=== PATIENT | female | born 1965 | race Caucasian/White ===

== ENCOUNTER 2021-01-04 08:10 | Day surgery (SDC) | payer OTHER, SELFPAY ==
[~2021-01-04] VITALS: Ht 152.4 cm; Wt 54.4 kg
[2021-01-04] MEDS ORDERED: fentaNYL citrate 0.05 MG/ML VIAL ONE (10:25)
[2021-01-04] MEDS ORDERED: MIDAZOLAM 5 MG/5 ML VIAL ONE (10:26)
[2021-01-04] MEDS ORDERED: LIDOCAINE 2% 100 MG/5 ML UJET TP ONE ×3 (10:34→14:20)
[2021-01-04] MEDS ORDERED: SIMETHICONE 40 MG/0.6 ML PO PRN ×2 (10:35→14:25)
[2021-01-04] MEDS ORDERED: SIMETHICONE 40 MG/0.6 ML ONE (13:02)
[2021-01-04] MEDS ORDERED: fentaNYL citrate 0.05 MG/ML VIAL IVP ONE (14:20)
== END 2021-01-04 11:42 | disposition home or self-care (01) ==
LOC: MDS 08:10 → MMU 08:11 → MDS 11:42
PROVIDERS: ATTEND Internal Medicine Gastroenterology
DX: Z12.11 Encounter for screening for malignant neoplasm of colon (principal); E11.9 Type 2 diabetes mellitus without complications; Z79.84 Long term (current) use of oral hypoglycemic drugs; Z79.82 Long term (current) use of aspirin
CPT/HCPCS: 45378; 82948; 87426; J3010; J2250